=== PATIENT | male | born 1975 | race American Indian/Alaskan Native ===

== ENCOUNTER 2020-03-16 14:05 | Emergency (ER) | payer SELFPAY ==
[2020-03-16] MEDS ORDERED: MAGNESIUM CITRATE 300 ML ORAL LIQD PO ONE (14:53)
--- NOTE | 2020-03-16 14:54 | Emergency Department Report ---
ED Abdominal Pain HPI - General Chief Complaint: Abdominal Pain Stated Complaint: ABD PAIN PUI?: No Time Seen by Provider: 03/16/20 14:40 Source: patient Mode of arrival: Ambulatory Limitations: No Limitations - History of Present Illness Initial Comments: 44 YO AA MALE COMES TO ER WITH RECTAL PAIN. HE IS HOMOSEXUAL- RECTAL SEX WITH NO TRAUMA. NO RECTAL BLEEDING. NO HEMORRHOID. NO FEVER OR CHILLS. ON HIV PROPHYLAXIS TREATMENT MD Complaint: abdominal pain -: Gradual, days(s) Radiation: none Migration to: no migration Severity: mild Consistency: intermittent Improves With: nothing Worsens With: nothing Associated Symptoms: denies other symptoms, constipation. denies: nausea, vomiting, diarrhea, fever, chills, dysuria, hematemesis, hematochezia, melena, hematuria, anorexia, syncope - Related Data Previous Rx's Medication Instructions Recorded Last Taken Type Docusate Sodium [Colace] 100 mg PO BID #60 capsule 03/16/20 Unknown Rx Allergies Allergy/AdvReac Type Severity Reaction Status Date / Time No Known Allergies Allergy Unverified 03/16/20 14:28 ED Review of Systems ROS: Stated complaint: ABD PAIN Other details as noted in HPI Comment: All other systems reviewed and negative ED Past Medical Hx - Past Medical History Previous Medical History?: No - Surgical History Past Surgical History?: Yes Hx Appendectomy: Yes - Family History Family history: no significant - Social History Smoking Status: Current Every Day Smoker Substance Use Type: None - Medications Home Medications: Home Medications Medication Instructions Recorded Confirmed Last Taken Type Docusate Sodium [Colace] 100 mg PO BID #60 capsule 03/16/20 Unknown Rx ED Physical Exam - General Limitations: No Limitations General appearance: alert, in no apparent distress - Head Head exam: Present: atraumatic, normocephalic - Eye Eye exam: Present: normal appearance - ENT ENT exam: Present: mucous membranes moist - Neck Neck exam: Present: normal inspection - Respiratory Respiratory exam: Present: normal lung sounds bilaterally. Absent: respiratory distress - Cardiovascular Cardiovascular Exam: Present: regular rate, normal rhythm. Absent: systolic murmur, diastolic murmur, rubs, gallop - GI/Abdominal GI/Abdominal exam: Present: soft, normal bowel sounds - Rectal Rectal exam: Present: deferred - Extremities Exam Extremities exam: Present: normal inspection - Back Exam Back exam: Present: normal inspection - Neurological Exam Neurological exam: Present: alert, oriented X3 - Psychiatric Psychiatric exam: Present: normal affect, normal mood - Skin Skin exam: Present: warm, dry, intact, normal color. Absent: rash ED Medical Decision Making - Lab Data Result diagrams: 03/16/20 14:53 03/16/20 14:53 - Radiology Data Radiology results: report reviewed, image reviewed - Medical Decision Making Labs 03/16/20 03/16/20 14:53 14:53 WBC 4.4 L RBC 4.50 Hgb 14.8 Hct 42.7 MCV 95 H MCH 33 H MCHC 35 H RDW 13.5 Plt Count 310 Lymph % (Auto) 42.7 H [place] % (Auto) 9.6 H Eos % (Auto) 2.3 Baso % (Auto) 1.1 Lymph # 1.9 [place] # 0.4 Eos # 0.1 Baso # 0.0 Seg Neutrophils % 44.3 Seg Neutrophils # 2.0 Sodium 135 L Potassium 4.7 Chloride 99.1 Carbon Dioxide 26 Anion Gap 15 BUN 13 Creatinine 1.0 Estimated GFR > 60 BUN/Creatinine Ratio 13 Glucose 112 H Calcium 9.5 Total Bilirubin 0.30 AST 18 ALT 33 Alkaline Phosphatase 66 Total Protein 8.0 Albumin 4.7 Albumin/Globulin Ratio 1.4 XRAY CHEST NOTED LABS NOTED MAG CITRATE PO CT NOTED VSS. NON ILL NON TOXIC ON EXAM. PT BEING DC HOME WITH GI FOLLOW UP. PT EDUCATED ON TREATMENT FOR CONSTIPATION - Differential Diagnosis RO CONSTIPATION/ OBSTRUCTION/RECTAL TRAUMA/ABSCESS/HEMORRHOID Critical care attestation.: If time is entered above; I have spent that time in minutes in the direct care of this critically ill patient, excluding procedure time. ED Disposition Clinical Impression: Constipation Disposition: DC-01 TO HOME OR SELFCARE Is pt being admited?: No Does the pt Need Aspirin: No Condition: Stable Additional Instructions: MED ORDERED TODAY FOLLOW UP WITH GI MD THEY MAY NEED TO DO A COLONOSCOPY HIGH FIBER DIET FOLLOW UP WITH PCP REFERRALS BELOW CONTINUE HOME MEDS Prescriptions: Docusate Sodium [Colace] 100 mg PO BID #60 capsule Referrals: TRUMAN NIÑO MD [Staff Physician] - 3-5 Days HANSEL RIVAS MD [Staff Physician] - 3-5 Days GIBSON CAMPOS MD [Staff Physician] - 3-5 Days SALOMON MORTON MD [Staff Physician] - 3-5 Days Time of Disposition: 16:09
--- NOTE | 2020-03-16 15:04 | XRay Report ---
ABDOMEN 2 VIEW(S) WITH PA CHEST INDICATION / CLINICAL INFORMATION: abd pain. COMPARISON: None available. FINDINGS: CHEST X-RAY: No acute cardiopulmonary abnormality. TUBES / LINES: None. BOWEL GAS PATTERN/EXTRALUMINAL GAS: Mild constipation. No dilated loops of bowel. No pneumatosis or s econdary signs of free air. ADDITIONAL FINDINGS: No significant additional findings. IMPRESSION: 1. No acute findings. Mild constipation. Signer Name: Soy Basurto MD Signed: 03/16/2020 2:59 PM Workstation Name: [id number]
[2020-03-16 15:08] LABS: Basophils % (Auto) 1.1 % (0.0-1.8); Eosinophils # (Auto) 0.1 K/mm3 (0.0-0.4); Eosinophils % (Auto) 2.3 % (0.0-4.3); Hematocrit 42.7 % (35.5-45.6); Hemoglobin 14.8 gm/dl (11.8-15.2); Lymphocytes # (Auto) 1.9 K/mm3 (1.2-5.4); Lymphocytes % (Auto) 42.7 % (13.4-35.0); Mean Corpuscular HGB Conc 35 % (32-34); Mean Corpuscular Volume 95 fl (84-94); Monocytes # (Auto) 0.4 K/mm3 (0.0-0.8); Monocytes % (Auto) 9.6 % (0.0-7.3); Platelet Count 310 K/mm3 (140-440); Red Cell Distribution Width 13.5 % (13.2-15.2)
[2020-03-16 15:29] LABS: Alanine Aminotransferase 33 units/L (7-56); Albumin 4.7 g/dL (3.9-5); BUN/Creatinine Ratio 13; Blood Urea Nitrogen 13 mg/dL (9-20); Calcium 9.5 mg/dL (8.4-10.2); Hemolysis Index 10
[2020-03-16] MEDS ORDERED: SODIUM CHLORIDE 0.9% 1000 ML 1,000 ML IV ONE (15:33)
--- NOTE | 2020-03-16 16:29 | Cat Scan Report ---
CT ABDOMEN AND PELVIS WITH CONTRAST HISTORY: abd pain/ rectal pain; sex with men COMPARISON: None. TECHNIQUE: Axial CT images were obtained through the abdomen and pelvis after 100 cc of Omnipaque 300 intravenously. Sagittal and coronal reformatted images. All CT scans at this location are performed using CT dose reduction for ALARA by means of automated exposure control. FINDINGS: CT ABDOMEN: Lung Bases: Clear. Liver: No significant abnormality. Biliary: No significant abnormality. Spleen: No significant abnormality. Unenlarged. Pancreas: No significant abnormality. Adrenals: No significant abnormality. Kidneys: No significant abnormality. Lymphatics: No lymphadenopathy. Vasculature: No significant abnormality. Bowel/Peritoneum: No significant abnormality. No free air. No free fluid. The appendix is not confide ntly identified, correlate with surgical history. No abnormality is appreciated in the rectum. CT PELVIS: : No significant abnormality. Osseous Structures: No significant abnormality. Additional Findings: None IMPRESSION: No significant abnormality. Signer Name: Kerwin Meier Jr, MD Signed: 03/16/2020 4:24 PM Workstation Name: [id number]
== END 2020-03-16 17:03 | disposition home or self-care (01) ==
LOC: ED 14:05
DX: K59.00 Constipation, unspecified (principal); F17.200 Nicotine dependence, unspecified, uncomplicated; Z90.49 Acquired absence of other specified parts of digestive tract; Z79.899 Other long term (current) drug therapy
CPT/HCPCS: 36415; 74022; 74177; 80053; 85025; 99284; J7030; Q9967